=== PATIENT | female | born 1995 | race Caucasian/White ===

== ENCOUNTER 2022-04-27 16:30 | Emergency (ER) | payer MEDICAID ==
[~2022-04-27] VITALS: Ht 154.9 cm; Wt 79.1 kg
[2022-04-27 16:34] VITALS: BP 132/73
== END 2022-04-27 17:40 | disposition home or self-care (01) ==
LOC: EMS 16:40
DX: O26.893 Other specified pregnancy related conditions, third trimester (principal); R10.9 Unspecified abdominal pain
CPT/HCPCS: 99284; Z7502

== ENCOUNTER 2023-05-09 10:51 | Emergency (ER) | payer MEDICAID ==
[~2023-05-09] VITALS: Ht 154.9 cm; Wt 75.9 kg
[2023-05-09 11:02] VITALS: BP 117/69; PULSE 100; RESP 14; TEMP 99
[2023-05-09 11:23] LABS: COVID AG,FIA SOURCE NASAL SWAB
[2023-05-09 11:35] LABS: RAPID GROUP A STREP NEGATIVE (NEGATIVE)
[2023-05-09 11:43] LABS: INFLUENZA TYPE A NEGATIVE FOR TYPE A (NEGATIVE); INFLUENZA TYPE B NEGATIVE FOR TYPE B (NEGATIVE)
[2023-05-09] MEDS ORDERED: OXYM30SP27 NASAL (15:24)
== END 2023-05-09 15:30 | disposition home or self-care (01) ==
LOC: EMS 10:51
DX: J02.9 Acute pharyngitis, unspecified (principal); Z20.822 Contact with and (suspected) exposure to COVID-19
CPT/HCPCS: 87430; 87804; 99283